=== PATIENT | male | born 1980 | race Caucasian/White ===

== ENCOUNTER 2016-10-04 19:02 | Emergency (ER) | payer OTHER ==
[~2016-10-04] VITALS: Ht 185.4 cm; Wt 83.9 kg
[~2016-10-04 19:02] MED LIST: CELEXA20 MG PO; CITALOPRAM HBR20 MG PO; DEPAKOTE500 MG PO; FLEXERIL10 MG PO; INDOCIN50 MG PO; MIRALAX17 GM PO; MOTRIN800 MG PO; NAPROSYN500 MG PO; NOHOMEMEDS; NUPRIN200 M1 PO; PERCOCET 5/31 TABLET PO; REMERON30 M2 PO; SILVADENE20 GM TP; STRATTERA40 MG PO; SUBOXONE 8 MG-1 EAC2 SL; TYLENOL EXTRA500 M1 PO; TYLENOL WITH C1 EACH PO; TYLENOL325 M1 PO; VALIUM5 MG PO; percocet
[2016-10-04 20:31] LABS: HEMATOCRIT 46.3 % (38.0-50.0); MCH 31.8 PG (29.0-34.0); MCHC 34.8 G/DL (30.0-36.0); MCV 91.3 FL (86-99); MEAN PLAT.VOLUME 10.7 uM^3 (9.0-12.4); PLATELET COUNT 221 K/uL (156-360); RBC DIS.WIDTH-CV 12.3 % (11.8-14.6); RBC DIS.WIDTH-SD 40.7 % (39-53); RED BLOOD COUNT 5.07 M/uL (4.00-5.50); WHITE BLOOD COUNT 9.5 K/uL (4.1-10.2)
[2016-10-04 20:39] LABS: CHLORIDE 105 mEq/L (99-109); POTASSIUM 3.9 mEq/L (3.7-5.4); SODIUM 144 mEq/L (136-147)
[2016-10-04 20:41] LABS: GLUCOSE 91 mg/dL (70-99)
[2016-10-04 20:42] LABS: ANION GAP 13 MEQ/L (2-14)
[2016-10-04 20:43] LABS: TOTAL BILIRUBIN 0.7 mg/dL (0.0-1.0)
[2016-10-04 20:44] LABS: SERUM ETHYL ALCOHOL 242 mg/dL
[2016-10-04 20:45] LABS: ALKALINE PHOSPHATASE 78 IU/L (3-129); GFR ESTIMATE (CALCULATED) > 59 mL/min/
[2016-10-04 20:46] LABS: UREA NITROGEN (BUN) 16 mg/dL (9-23)
[2016-10-04 20:59] LABS: ADD MIUA? NO; BILIRUBIN NEGATIVE; BLOOD NEGATIVE; COLOR LT. YELLOW ((YELLOW)); GLUCOSE (STRIP) NEGATIVE; KETONES NEGATIVE; LEUKOCYTES NEGATIVE; NITRITE NEGATIVE; PROTEIN (STRIP) NEGATIVE; SPECIFIC GRAVITY 1.004 (1.000-1.030); UROBILINOGEN 0.2 MG/DL (0.2-1.0)
[2016-10-04 21:03] LABS: AMPHETAMINE NEGATIVE (500 ng/mL); BARBITURATES NEGATIVE (200 ng/mL); BENZODIAZEPINES NEGATIVE (150 ng/mL); COCAINE NEGATIVE (150 ng/mL); INTERNAL CONTROLS VALID? YES; METHADONE NEGATIVE (200 ng/mL); METHAMPHETAMINE NEGATIVE (500 ng/mL); OPIATES (MORPHINE) NEGATIVE (100 ng/mL); OXYCODONE NEGATIVE (100 ng/mL); PHENCYCLIDINE NEGATIVE (25 ng/mL); PROPOXYPHENE NEGATIVE (300 ng/mL); THC CANNABINOIDS NEGATIVE (50 ng/mL); TRICYCLIC ANTIDEPRESSANTS NEGATIVE (300 ng/mL)
[2016-10-05 10:23] VITALS: BP 114/78
== END 2016-10-05 10:30 | disposition home or self-care (01) ==
LOC: EME 19:02
PROVIDERS: Emergency Medicine
DX: F10.129 Alcohol abuse with intoxication, unspecified (principal); F32.9 Major depressive disorder, single episode, unspecified; R45.851 Suicidal ideations; Z59.0 Homelessness; Z78.1 Physical restraint status; F17.200 Nicotine dependence, unspecified, uncomplicated
CPT/HCPCS: 80053; 81003; 85027; 90839; 99281; 99285; G0480; J1630; J2060

== ENCOUNTER 2016-10-10 18:34 | Emergency (ER) | payer OTHER ==
[2016-10-10 18:57] LABS: EOSINOPHIL (%) 0.8 % (0-5); EOSINOPHIL COUNT 0.1 K/uL (0-0.3); HEMATOCRIT 44.6 % (38.0-50.0); IMMATURE GRANULOCYTE (%) 0.3 % (0.0-0.7); INSTRUMENT ABS NEUTROPHIL CT 3.7 K/uL; LYMPHOCYTE COUNT 2.7 K/uL (1.0-2.8); MCH 32.3 PG (29.0-34.0); MCHC 35.7 G/DL (30.0-36.0); MCV 90.7 FL (86-99); MONOCYTE (%) 11.2 % (3-12); MONOCYTE COUNT 0.8 K/uL (0-0.8); NEUTROPHIL COUNT 3.7 K/uL (1.8-6.4); RBC DIS.WIDTH-CV 12.4 % (11.8-14.6); RBC DIS.WIDTH-SD 40.9 % (39-53); RED BLOOD COUNT 4.92 M/uL (4.00-5.50); WHITE BLOOD COUNT 7.3 K/uL (4.1-10.2)
[2016-10-10 19:06] LABS: AMYLASE 82 IU/L (1-118); CHLORIDE 107 mEq/L (99-109); POTASSIUM 3.4 mEq/L (3.7-5.4); SODIUM 143 mEq/L (136-147)
[2016-10-10 19:07] LABS: GLUCOSE 122 mg/dL (70-99)
[2016-10-10 19:09] LABS: ANION GAP 19 MEQ/L (2-14)
[2016-10-10 19:11] LABS: GFR ESTIMATE (CALCULATED) > 59 mL/min/; SERUM ETHYL ALCOHOL 349 mg/dL
[2016-10-10 19:12] LABS: UREA NITROGEN (BUN) 11 mg/dL (9-23)
[2016-10-10 19:14] LABS: LIPASE 56 U/L (1.0-51.0)
[2016-10-10 19:26] LABS: ADD MIUA? YES; BILIRUBIN NEGATIVE; BLOOD SMALL; COLOR YELLOW ((YELLOW)); GLUCOSE (STRIP) NEGATIVE; KETONES NEGATIVE; LEUKOCYTES NEGATIVE; NITRITE NEGATIVE; PROTEIN (STRIP) 30; SPECIFIC GRAVITY 1.023 (1.000-1.030); UROBILINOGEN 0.2 MG/DL (0.2-1.0)
[2016-10-10 19:34] LABS: MEAN PLAT.VOLUME 10.7 uM^3 (9.0-12.4); PLATELET COUNT 187 K/uL (156-360)
[2016-10-10 19:35] LABS: AMPHETAMINE NEGATIVE (500 ng/mL); BACTERIA NONE SEEN /HPF; BARBITURATES NEGATIVE (200 ng/mL); BENZODIAZEPINES NEGATIVE (150 ng/mL); COCAINE PRESUMPTIVE POSITIVE (150 ng/mL); EPITHELIAL CELLS NONE SEEN /HPF; GRANULAR CASTS 0-5 /LPF; HYALINE CASTS 0-5 /LPF; INTERNAL CONTROLS VALID? YES; METHADONE NEGATIVE (200 ng/mL); METHAMPHETAMINE NEGATIVE (500 ng/mL); MUCUS TRACE /LPF; OPIATES (MORPHINE) PRESUMPTIVE POSITIVE (100 ng/mL); OXYCODONE NEGATIVE (100 ng/mL); PHENCYCLIDINE NEGATIVE (25 ng/mL); PROPOXYPHENE NEGATIVE (300 ng/mL); RED BLOOD CELLS NONE SEEN /HPF (0-5); THC CANNABINOIDS NEGATIVE (50 ng/mL); TRICYCLIC ANTIDEPRESSANTS NEGATIVE (300 ng/mL); UCUL ADDED? NO; WHITE BLOOD CELLS NONE SEEN /HPF (0-5)
[2016-10-10 19:36] LABS: ADD MEDTOX COMMENT Y
[2016-10-10 19:41] LABS: BASE EXCESS -1.2 mEq/L (-3 to +3); BICARBONATE 23.6 mEq/L (22-26); CARBOXY HGB 5.7 % (0-5); COMMENTS - BLOOD GASES C+; DEVICE VENT; FI02 100 %; MECHANICAL RATE 16 resp/min; MODE A/C; PCO2 39 mm Hg (35-45); PEEP 3 CM/H20; PO2 500 mm Hg (80-100); SITE RR; TIDAL VOLUME 500 ML; TOTAL RESP RATE 18 resp/min; pH 7.39 (7.35-7.45)
[2016-10-10] MEDS ORDERED: PERCOCET 5/31 TABLET PO (21:52)
== END 2016-10-11 00:39 | disposition home or self-care (01) ==
LOC: TRA 18:34
PROVIDERS: Emergency Medicine
DX: S02.2XXA Fracture of nasal bones, initial encounter for closed fracture (principal); S02.609A Fracture of mandible, unspecified, initial encounter for closed fracture; R41.82 Altered mental status, unspecified; Y09 Assault by unspecified means; Y92.481 Parking lot as the place of occurrence of the external cause; E11.9 Type 2 diabetes mellitus without complications; F17.200 Nicotine dependence, unspecified, uncomplicated
CPT/HCPCS: 36600; 70450; 70486; 71010; 71260; 72125; 72129; 72132; 74177; 80048; 81003; 82150; 82803; 83690; 84999; 85025; 86850; 86900; 86901; 87070; 87077; 87205; 90832; 94002; G0480; J2310; J2704

== ENCOUNTER 2017-07-20 14:26 | Inpatient (IN) | payer OTHER ==
[~2017-07-20] VITALS: Ht 185.4 cm; Wt 75.1 kg
[2017-07-20 15:32] LABS: HEMATOCRIT 47.5 % (38.0-50.0); HEMOGLOBIN 16.6 G/DL (12.5-16.6); MCH 32.2 PG (29.0-34.0); MCHC 34.9 G/DL (30.0-36.0); MCV 92.2 FL (86-99); PLATELET COUNT 282 K/uL (156-360); RBC DIS.WIDTH-CV 13.2 % (11.8-14.6); RBC DIS.WIDTH-SD 45.5 % (39-53); RED BLOOD COUNT 5.15 M/uL (4.00-5.50); WHITE BLOOD COUNT 9.4 K/uL (4.1-10.2)
[2017-07-20 15:41] LABS: ALBUMIN 3.7 g/dL (3.2-4.8)
[2017-07-20 15:42] LABS: CHLORIDE 101 mEq/L (99-109); POTASSIUM 4.2 mEq/L (3.7-5.4); SODIUM 140 mEq/L (136-147)
[2017-07-20 15:44] LABS: GLUCOSE 89 mg/dL (70-99); TOTAL PROTEIN 7.2 g/dL (6.4-8.3)
[2017-07-20 15:46] LABS: TOTAL BILIRUBIN 9.4 mg/dL (0.0-1.0)
[2017-07-20 15:47] LABS: ALKALINE PHOSPHATASE 221 IU/L (3-129)
[2017-07-20 15:48] LABS: CREATININE 0.9 mg/dL (0.6-1.3); GFR ESTIMATE (CALCULATED) > 59 mL/min/ (58.99-99999)
[2017-07-20 15:49] LABS: UREA NITROGEN (BUN) 14 mg/dL (9-23)
[2017-07-20 15:58] LABS: ALT (GPT) 2271 IU/L (3-49); AST (GOT) 1518 IU/L (2-34)
[2017-07-20 16:52] LABS: APPEARANCE SL.HAZY ((CLEAR)); BILIRUBIN MODERATE; BLOOD NEGATIVE; COLOR AMBER ((YELLOW)); GLUCOSE (STRIP) NEGATIVE; KETONES NEGATIVE; LEUKOCYTES NEGATIVE; NITRITE NEGATIVE; PROTEIN (STRIP) 100; SPECIFIC GRAVITY 1.025 (1.000-1.030)
[2017-07-20 16:59] LABS: BACTERIA RARE /HPF; EPITHELIAL CELLS RARE /HPF; MUCUS 4+ /LPF; UCUL ADDED? NO; WHITE BLOOD CELLS 0-5 /HPF (0-5)
[2017-07-20 17:19] LABS: ICTOTEST POSITIVE
[2017-07-20 17:25] LABS: CREATINE KINASE 37 IU/L (1-294); DIRECT BILIRUBIN 7.3 mg/dL (0.0-0.3); LIPASE 12 U/L (1.0-51.0); TOTAL CK 37 IU/L (1-294)
[2017-07-20 17:31] LABS: CK-MB 0.4 ng/mL (0.0-4.9); CKMB RELATIVE INDEX 1.1 (0.0-3.9)
[2017-07-20 18:18] LABS: ACETAMINOPHEN (TYLENOL) < 10 mcg/mL (10-30)
[2017-07-20 18:34] LABS: INTER. NORMALIZED RATIO 1.2
[2017-07-20 18:37] LABS: PTT 33.1 SEC (25-37)
[2017-07-20] MEDS ORDERED: SUBOXONE 8 MG-1 EAC2 SL (20:35)
[2017-07-21 07:44] VITALS: BP 127/91
[2017-07-21 07:49] LABS: HEMATOCRIT 45.8 % (38.0-50.0); HEMOGLOBIN 15.6 G/DL (12.5-16.6); MCH 31.6 PG (29.0-34.0); MCHC 34.1 G/DL (30.0-36.0); MCV 92.7 FL (86-99); PLATELET COUNT 262 K/uL (156-360); RBC DIS.WIDTH-CV 13.6 % (11.8-14.6); RBC DIS.WIDTH-SD 46.5 % (39-53); RED BLOOD COUNT 4.94 M/uL (4.00-5.50); WHITE BLOOD COUNT 9.1 K/uL (4.1-10.2)
[2017-07-21 07:56] LABS: INTER. NORMALIZED RATIO 1.1
[2017-07-21 08:18] LABS: ALBUMIN 3.4 G/DL (3.2-4.8); ALKALINE PHOSPHATASE 179 IU/L (3-129); AST (GOT) 965 IU/L (2-34); CHLORIDE 106 MEQ/L (99-109); GFR ESTIMATE (CALCULATED) > 59 mL/min/ (58.99-99999); GLUCOSE 101 mg/dL (70-99); POTASSIUM 4.2 MEQ/L (3.7-5.4); SODIUM 139 MEQ/L (136-147); TOTAL BILIRUBIN 9.3 MG/DL (0.0-1.0); TOTAL PROTEIN 5.9 G/DL (6.4-8.3); UREA NITROGEN (BUN) 10 mg/dL (9-23)
[2017-07-21 08:34] LABS: ALT (GPT) 1516 IU/L (3-49)
[2017-07-21 09:58] LABS: TREPONEMA ANTIBODY NEGATIVE (NEGATIVE)
[2017-07-21 10:50] LABS: HEPATITIS B SURFACE ANTIGEN Nonreactive
[2017-07-21 10:51] LABS: ANTI-HEPATITIS A VIRUS (IGM) Nonreactive
[2017-07-21 10:53] LABS: ANTI-HEPATITIS B CORE (IGM) Nonreactive
[2017-07-21 10:54] LABS: HEPATITIS B SURFACE ANTIGEN Nonreactive
[2017-07-21 10:55] LABS: ANTI-HEPATITIS A VIRUS (IGM) Nonreactive
[2017-07-21 10:56] LABS: ANTI-HEPATITIS B CORE (IGM) Nonreactive; HIV-1/2 AB/AG COMBO Nonreactive
[2017-07-21 11:13] LABS: HEPATITIS C ANTIBODY REACTIVE
[2017-07-21 11:13] LABS: HEPATITIS C ANTIBODY REACTIVE
[2017-07-21 11:31] VITALS: BP 125/87
[2017-07-21 13:47] VITALS: BP 127/91
[2017-07-21 15:31] VITALS: BP 124/80
[2017-07-21 19:15] VITALS: BP 143/89
[2017-07-22 00:27] VITALS: BP 117/67
[2017-07-22 04:50] VITALS: BP 122/78
[2017-07-22 06:20] LABS: CHLORIDE 104 MEQ/L (99-109); CREATININE 0.9 MG/DL (0.6-1.3); GFR ESTIMATE (CALCULATED) > 59 mL/min/ (58.99-99999); GLUCOSE 98 mg/dL (70-99); POTASSIUM 4.2 MEQ/L (3.7-5.4); SODIUM 139 MEQ/L (136-147); UREA NITROGEN (BUN) 10 mg/dL (9-23)
[2017-07-22 06:45] LABS: INTER. NORMALIZED RATIO 1.1
[2017-07-22 08:08] VITALS: BP 104/59
[2017-07-22 08:31] LABS: ALBUMIN 3.5 G/DL (3.2-4.8); ALKALINE PHOSPHATASE 167 IU/L (3-129); AST (GOT) 662 IU/L (2-34); DIRECT BILIRUBIN 5.3 mg/dL (0.0-0.3); TOTAL BILIRUBIN 8.9 MG/DL (0.0-1.0); TOTAL PROTEIN 6.1 G/DL (6.4-8.3)
[2017-07-22 08:32] LABS: ALT (GPT) 1339 IU/L (3-49)
[2017-07-22] MEDS ORDERED: BENTYL10 MG PO (09:39)
[2017-07-22] MEDS ORDERED: CLONIDINE HCL0.1 MG PO (09:41)
[2017-07-23 16:38] LABS: HCV RNA (LOG IU/mL) 6.45 (<1.18)
== END 2017-07-22 11:30 | disposition home or self-care (01) | DRG 442 ==
LOC: EME 14:26 → EDOF 22:18 → ENRESERV 22:35 → 5WEST 07-21 07:16
PROVIDERS: Hospitalist; Internal Medicine Gastroenterology; Physician Assistant
PROC: HZ2ZZZZ Detoxification Services for Substance Abuse Treatment (ICD-10-PCS; principal; 2017-07-21)
DX: B17.10 Acute hepatitis C without hepatic coma (principal); F11.23 Opioid dependence with withdrawal; F10.20 Alcohol dependence, uncomplicated; E11.9 Type 2 diabetes mellitus without complications; F32.9 Major depressive disorder, single episode, unspecified; F41.9 Anxiety disorder, unspecified; F17.200 Nicotine dependence, unspecified, uncomplicated; Z88.0 Allergy status to penicillin
CPT/HCPCS: 74176; 76705; 80048; 80053; 80074; 80076; 81003; 82140; 82248; 82550; 82553; 83690; 85027; 85610; 85730; 86038; 86703; 86780; 87040; 87522 90; 87902 90; 99281; 99285; G0378; G0480; J2270; J2405; J7030; S0028

== ENCOUNTER 2018-01-21 13:39 | Emergency (ER) | payer OTHER ==
[~2018-01-21] VITALS: Ht 185.4 cm; Wt 74.0 kg
[~2018-01-21 13:39] MED LIST changes: +BENTYL10 MG PO; +CLONIDINE HCL0.1 MG PO
[2018-01-21 16:30] LABS: HEMATOCRIT 41.5 % (38.0-50.0); HEMOGLOBIN 15.3 G/DL (12.5-16.6); MCH 34.2 PG (29.0-34.0); MCHC 36.9 G/DL (30.0-36.0); MCV 92.6 FL (86-99); PLATELET COUNT 302 K/uL (156-360); RBC DIS.WIDTH-CV 11.4 % (11.8-14.6); RBC DIS.WIDTH-SD 38.9 % (39-53); RED BLOOD COUNT 4.48 M/uL (4.00-5.50); WHITE BLOOD COUNT 9.7 K/uL (4.1-10.2)
[2018-01-21 16:38] LABS: ALBUMIN 3.6 g/dL (3.2-4.8); CHLORIDE 106 mEq/L (99-109); POTASSIUM 4.1 mEq/L (3.7-5.4); SODIUM 142 mEq/L (136-147)
[2018-01-21 16:40] LABS: GLUCOSE 74 mg/dL (70-99); TOTAL PROTEIN 7.5 g/dL (6.4-8.3)
[2018-01-21 16:42] LABS: TOTAL BILIRUBIN 0.5 mg/dL (0.0-1.0)
[2018-01-21 16:43] LABS: SERUM ETHYL ALCOHOL < 10 mg/dL
[2018-01-21 16:44] LABS: ALKALINE PHOSPHATASE 99 IU/L (3-129); CREATININE 0.8 mg/dL (0.6-1.3); GFR ESTIMATE (CALCULATED) > 59 mL/min/ (58.99-99999)
[2018-01-21 16:45] LABS: AST (GOT) 95 IU/L (2-34); UREA NITROGEN (BUN) 10 mg/dL (9-23)
[2018-01-21 16:47] LABS: ALT (GPT) 140 IU/L (3-49)
[2018-01-21 18:49] LABS: AMPHETAMINE NEGATIVE (500 ng/mL); BARBITURATES NEGATIVE (200 ng/mL); BENZODIAZEPINES NEGATIVE (150 ng/mL); BUPRENORPHINE NEGATIVE (10 ng/mL); COCAINE PRESUMPTIVE POSITIVE (150 ng/mL); METHADONE PRESUMPTIVE POSITIVE (200 ng/mL); METHAMPHETAMINE NEGATIVE (500 ng/mL); OPIATES (MORPHINE) PRESUMPTIVE POSITIVE (100 ng/mL); OXYCODONE NEGATIVE (100 ng/mL); PHENCYCLIDINE NEGATIVE (25 ng/mL); PROPOXYPHENE NEGATIVE (300 ng/mL); THC CANNABINOIDS PRESUMPTIVE POSITIVE (50 ng/mL); TRICYCLIC ANTIDEPRESSANTS NEGATIVE (300 ng/mL)
[2018-01-21 19:14] VITALS: BP 124/74
== END 2018-01-21 19:17 | disposition home or self-care (01) ==
LOC: EME 13:39
PROVIDERS: Emergency Medicine
DX: F11.10 Opioid abuse, uncomplicated (principal); S93.402A Sprain of unspecified ligament of left ankle, initial encounter; J44.9 Chronic obstructive pulmonary disease, unspecified; Z59.0 Homelessness; F43.20 Adjustment disorder, unspecified; E11.9 Type 2 diabetes mellitus without complications; F32.9 Major depressive disorder, single episode, unspecified; F17.200 Nicotine dependence, unspecified, uncomplicated; Z87.19 Personal history of other diseases of the digestive system; Z86.39 Personal history of other endocrine, nutritional and metabolic disease; Z88.0 Allergy status to penicillin
CPT/HCPCS: 80053; 84999; 85027; 90839; 94640; 99281; 99285; G0480